=== PATIENT | female | born 2000 | race Two or more races ===

== ENCOUNTER 2024-02-02 13:23 | Emergency (ER) | payer MEDICAID, SELFPAY | END 2024-02-02 13:45 | disposition left against medical advice (07) | PROVIDERS: Emergency Provider Emergency Medicine | DX: Z53.21 Procedure and treatment not carried out due to patient leaving prior to being seen by health care provider (principal) ==

== ENCOUNTER 2024-02-02 14:27 | Emergency (ER) | payer MEDICAID, SELFPAY ==
[2024-02-02 14:27] VITALS: PULSE 86; RESP 18; O2SAT 99
[2024-02-02 14:51] VITALS: BP 102/69; PULSE 80; RESP 18; TEMP 36.9; O2SAT 98; BMI 24.8
--- NOTE | 2024-02-02 14:59 | XR_ITS ---
Examination: Abdomen sonogram, Limited Date and time of exam: February 02, 2024 1527 hours INDICATIONS: Abdominal pain beginning 2 days ago Technique: Real-time long scale transabdominal sonographic images of the upper abdomen obtained. Findings: Multiple gallstones Gallbladder wall 0.3 cm no edema Common bile duct 0.4 cm Pancreatic head 1.9 cm Liver 15 cm fatty infiltration Normal hepatopedal portal venous flow Patent IVC IMPRESSION: Cholelithiasis Negative for cholecystitis Fatty liver
--- NOTE | 2024-02-02 14:59 | XR_ITS ---
Examination: CT abdomen with intravenous contrast CT pelvis with intravenous contrast 2-D coronal reconstructions 2-D sagittal reconstructions Date and time of exam:February 02, 2024 1635 hours INDICATIONS: Upper abdominal pain bilateral flank pain beginning 3 days ago. CTDI: vol (mGy) 8.09 DLP: (mGycm) 457 Technique: Multiple axial sections of the abdomen and pelvis have been obtained. 64 slice high-resolution scanner used. 3 mm axial sections have been obtained, post intravenous injection 60 cc [id number] 2-D sagittal, coronal reconstructions obtained. Low dose protocols were performed. One or more of the following dose reduction techniques were used; automated exposure control, adjustment of the mA and/or KV according to patient size, use of iterative reconstruction technique. Findings: No focal liver or splenic lesions Contracted gallbladder, mild gallbladder wall thickening No pancreatic or adrenal mass No renal or ureteral calculi, no hydronephrosis Aorta normal size Normal appendix No diverticulitis or bowel obstruction No uterine or adnexal mass Urinary bladder intact IMPRESSION: Mild gallbladder wall thickening, recommend repeating the gallbladder study to exclude mild edema involving the gallbladder wall
[2024-02-02] MEDS: SODIUM CHLORIDE 0.9% 1000 ML 1,000 ML 999 ML IV (15:20)
[2024-02-02] MEDS: MORPHINE SULF INJ 10 MG/ML VIAL 5 MG IVP (15:21)
[2024-02-02] MEDS: ONDANSETRON INJ 2 MG/ML INJ 2 ML 4 MG IV (15:22)
[2024-02-02 15:43] LABS: Collection Type, Urine Clean Catch
[2024-02-02 15:49] LABS: Basophils % (Auto) 0 % (0-2.5); Eosinophils # (Auto) 0.1 Thou/mm3 (0.0-0.5); Eosinophils % (Auto) 0 % (0-10); Hematocrit 38.4 % (36.0-46.0); Hemoglobin 13.1 g/dL (12.0-16.0); Immature Granulocytes % (Auto) 0 % (0-0); Immature Granulocytes Auto 0.03 Thou/mm3 (0.00-0.00); Lymphocytes # (Auto) 1.4 Thou/mm3 (1.0-4.8); Lymphocytes % (Auto) 11 % (10-50); Mean Corpuscular HGB Conc 34.1 g/dl (31.0-37.0); Mean Corpuscular Hemoglobin 29.6 pg (25.0-35.0); Mean Corpuscular Volume 87 fL (80-100); Monocytes # (Auto) 0.8 Thou/mm3 (0.0-0.8); Monocytes % (Auto) 6 % (0-12); Neutrophils # (Auto) 10.5 Thou/mm3 (1.8-7.7); Neutrophils % (Auto) 82 % (37-80); Nucleated Red Blood Cell % 0 /100 WBC (0); Platelet Count 208 Thou/mm3 (140-440); RDW Standard Deviation 38.2 fL (36.4-46.3); Red Blood Count 4.42 Miln/mm3 (4.00-5.20); White Blood Count 12.9 Thou/mm3 (3.6-11.0)
[2024-02-02 15:56] LABS: HCG Qualitative,Urine Negative
[2024-02-02 16:00] LABS: Bacteria,Urine Rare; Bilirubin,Urine Negative (Negative); Blood,Urine Negative (Negative); Color,Urine Yellow (Lt Yel-Yel); Glucose, Urine Negative (Negative); Ketones,Urine 1+ (Negative); Leukocyte Esterase,Urine Positive (Negative); Nitrite,Urine Negative (Negative); Protein,Urine 1+ (Neg - Trace); RBC,Urine 5 /hpf (0-3); Specific Gravity,Urine 1.034 (1.001-1.035); Squamous Epithelial Cell,Urine 19 /hpf (0-5); Urobilinogen,Urine 12 mg/dL (0.0-1.0); WBC,Urine 4 /hpf (0-5)
[2024-02-02 16:01] LABS: Clarity,Urine Hazy (Clear/Hazy)
[2024-02-02 16:20] LABS: Alanine Aminotransferase 71 U/L (10-49); Albumin/Globulin Ratio 2.1 (1.2-2.2); Alkaline Phosphatase 83 U/L (46-116); Anion Gap 11 (7-16); Aspartate Amino Transferase 118 U/L (0-34); BUN/Creatinine Ratio 11 Ratio (12-20); Bilirubin,Total 0.6 mg/dL (0.3-1.2); Blood Urea Nitrogen 10 mg/dL (9-23); Calcium 9.6 mg/dL (8.3-10.6); Calcium (Corrected) 9.6 mg/dL (8.5-10.1); Carbon Dioxide 19.9 mMol/L (20.0-31.0); Chloride 110 mMol/L (98-107); Creatinine (Component) 0.9 mg/dL (0.6-1.3); Globulin 2.4 gm/dL (2.3-3.5); Glucose 95 mg/dL (74-106); Lipase 41 U/L (12-53); Osmolality,Calculated 280 (275-295); Sodium 141 mMol/L (136-145); Total Protein 7.4 gm/dL (5.7-8.2); eGFR > 60 See Note
--- NOTE | 2024-02-02 17:21 | EDNOTE_ITS ---
<Statement entered by Laurence Desai MD - 02/08/24 17:54> As co-signing physician, I was present and available for consult prn. I concur with the plan and care as documented by the midlevel provider. ED Abdominal Pain RME/HPI General Chief Complaint: Abdominal Pain Stated complaint: Abdominal pain X 1 hour Time seen by provider: 02/02/24 14:59 Arrival date/time: 02/02/24 14:27 This is a 23-year-old female evaluated in the emergency department today for complaints of intermittent right upper quadrant abdominal pain that radiates into her upper back. Patient does report her pain started yesterday and was evaluated in the emergency department at [facility] and was sent home for musculoskeletal pain. She reports her pain returned this a.m. 10 out of 10 while mild nausea no vomiting. Patient did not attempt any interventions or take any OTC medications prior to ED visit. Denies fever, chills no emesis. Source: patient Related Data Previous Rx's ?Medication ?Instructions ?Recorded hydrocodone 5 mg-acetaminophen 325 1 tab PO Q8H PRN pain #10 tabs 02/02/24 mg tablet ibuprofen 800 mg tablet (IBU) 800 mg PO Q8H #20 tabs 02/02/24 Allergies Allergy/AdvReac Type Severity Reaction Status Date / Time No Known Allergies Allergy Verified 02/02/24 13:28 Review of Systems Review of Systems Systems Reviewed: All systems reviewed, normal except as documented Narrative Review of Systems: Gen: No fever, no chills, no weight loss EYES: No discharge, no visual changes, no pain HEENT: No ear pain, no congestion, no sore throat PULM: No shortness of breath, no cough, no congestion CV: No chest pain, no dyspnea on exertion, no palpitations GI: + nausea, no vomiting, no diarrhea, +right upper pain, no constipation : No frequency, no urgency,? no dysuria Musc/skel: No joint pain, no back pain Skin: No rash? ED Exam Narrative Physical exam: General: 23-year-old female mild distress appears to be in pain, answering questions appropriately HENT: normocephalic, atraumatic, EOMI, PERRLA, moist mucous membranes Chest: chest wall is nontender Cardiac: regular rate and rhythm, normal S1 and S2, no murmurs, rubs, or gallops, capillary refill ?2 seconds Pulmonary: clear to auscultation bilaterally, no wheezing, crackles, or rhonchi Abdominal: active bowel sounds, soft, +rt upper quadrant abd pain Neuro: A&OX3, CN II-XII intact, sensation grossly intact bilaterally in UE and LE. Skin: no rashes, no ecchymosis Ext: no lower extremity edema Course Quality Measures none Orders Category Date Time Status CT Screening NOW Care 02/02/24 15:00 Completed Insert IV NOW Care 02/02/24 14:[address] abdomen pelvis w con Stat Exams 02/02/24 14:59 Completed US gall bladder Stat Exams 02/02/24 14:59 Completed CBC Stat Lab 02/02/24 15:11 Completed Comprehensive Metabolic Panel Stat Lab 02/02/24 15:11 Completed HCG Qualitative,Urine Stat Lab 02/02/24 15:30 Completed HCG,Qualitative Serum Stat Lab 02/02/24 15:11 Completed Lipase Stat Lab 02/02/24 15:11 Completed Urinalysis Stat Lab 02/02/24 15:30 Completed Morphine Inj Med 02/02/24 15:00 Discontinued 5 mg IVP Q1H PRN Ondansetron Inj [Zofran Inj] Med 02/02/24 15:00 Discontinued 4 mg IV X1 ONE Sodium Chloride 0.9% 1000 ml [Ns] 1,000 ml Med 02/02/24 15:17 Discontinued IV 999 mls/hr Vital Signs Vital signs: Vital Signs Temperature 98.5 F 02/02/24 14:51 Pulse Rate 80 02/02/24 14:51 Respiratory Rate 18 02/02/24 14:51 Blood Pressure 102/69 02/02/24 14:51 Pulse Oximetry (%) 98 02/02/24 14:51 Oxygen Delivery Method Room Air 02/02/24 14:51 Abdominal Pain MDM MDM Narrative MDM Narrative:: This is a 23-year-old female evaluated in the emergency department today for complaints of intermittent right upper quadrant abdominal pain that radiates into her upper back. Patient does report her pain started yesterday and was evaluated in the emergency department at [facility] and was sent home for musculoskeletal pain. She reports her pain returned this a.m. 10 out of 10 while mild nausea no vomiting. Patient did not attempt any interventions or take any OTC medications prior to ED visit. Denies fever, chills no emesis. Upon ER arrival patient is having severe pain 10 out of 10 immediately patient was placed in a room IV inserted fluids and morphine and Zofran were given. Patient was tender right upper quadrant most likely cholelithiasis. Appropriate labs, imaging were completed today.. Patient had some mild le ukocytosis can be related to the nausea and stress in the body. Patient has not had any fever. Patient's ultrasound demonstrates cholelithiasis negative for cholecystitis. T. bili is normal however mild elevation of liver enzymes. After medicating the patient and IV fluids patient felt much improved 0 pain. I did advise patient she will need to have a outpatient follow-up with general surgeon meanwhile can be discharged home with pain medication low-fat diet and strict ER precautions to return if worsening symptoms. Patient agrees with plan. Patient data External records reviewed:: [facility] previous records Clinical information provided by:: patient Social determinants that could affect healthcare access:: none Patient has the following chronic illnesses:: no How is presenting disease/condition affected by chronic disease/condition?: no chronic disease Evaluation data The following diagnostics were reviewed and interpreted by me:: lab results Lab and/or radiology exams considered but not ordered:: none Interpretation Summary: Examination: CT abdomen with intravenous contrast CT pelvis with intravenous contrast 2-D coronal reconstructions 2-D sagittal reconstructions Date and time of exam:February 02, 2024 1635 hours INDICATIONS: Upper abdominal pain bilateral flank pain beginning 3 days ago. CTDI: vol (mGy) 8.09 DLP: (mGycm) 457 Technique: Multiple axial sections of the abdomen and pelvis have been obtained. 64 slice high-resolution scanner used. 3 mm axial sections have been obtained, post intravenous injection 60 cc [id number] 2-D sagittal, coronal reconstructions obtained. Low dose protocols were performed. One or more of the following dose reduction techniques were used; automated exposure control, adjustment of the mA and/or KV according to patient size, use of iterative reconstruction technique. Findings: No focal liver or splenic lesions Contracted gallbladder, mild gallbladder wall thickening No pancreatic or adrenal mass No renal or ureteral calculi, no hydronephrosis Aorta normal size Normal appendix No diverticulitis or bowel obstruction No uterine or adnexal mass Urinary bladder intact IMPRESSION: Mild gallbladder wall thickening, recommend repeating the gallbladder study to exclude mild edema involving the gallbladder wall Examination: Abdomen sonogram, Limited Date and time of exam: February 02, 2024 1527 hours INDICATIONS: Abdominal pain beginning 2 days ago Technique: Real-time long scale transabdominal sonographic images of the upper abdomen obtained. Findings: Multiple gallstones Gallbladder wall 0.3 cm no edema Common bile duct 0.4 cm Pancreatic head 1.9 cm Liver 15 cm fatty infiltration Normal hepatopedal portal venous flow Patent IVC IMPRESSION: Cholelithiasis Negative for cholecystitis Fatty liver Medications / Prescriptions Medications or Prescriptions considered but not ordered:: no Medication administrations:: Medication Administration History Discontinued Medications Sodium Chloride (Ns) 1,000 mls @ 999 mls/hr IV .Q1H1M ONE Stop: 02/02/24 16:17 Last Infusion: 02/02/24 17:35 Dose: Infused Documented By: Admin: 02/02/24 15:20 Dose: 999 mls/hr Documented By: JILLIAN Morphine Sulfate (Morphine Sulf Inj 10 Mg/Ml Vial) 5 mg IVP Q1H PRN PRN Reason: ABDOMINAL CRAMPING Last Admin: 02/02/24 15:21 Dose: 5 mg Documented By: GINA Ondansetron HCl (Ondansetron Inj 2 Mg/Ml Inj 2 Ml) 4 mg IV X1 ONE; Protocol Stop: 02/02/24 15:01 Last Admin: 02/02/24 15:22 Dose: 4 mg Documented By: GINA All medications administered and effective Consultations Consultation(s) initiated? (list below): Yes Diagnosis Differential diagnosis abdominal pain: abdominal pain, acute appendicitis, calculus of kidney, diverticulitis, gastroenteritis, pancreatitis and small bowel obstruction Most likely diagnosis given after review of the tests above:: Cholelithiasis Admission Indicated Admission indicated?: not indicated Explain why admission is indicated or not indicated:: none Admission Request Was there a request for admission?: No Disposition Plan Disposition Plan: Discharge Discharge Attestation Discharge Attestation: The patient and all family members were given an opportunity to ask questions and understood the discharge instructions. Discharge instructions specifically effects, indications for sooner follow up or return to the emergency department, and the expected course of current diagnosis. Patient condition: Stable Discharge Plan Plan Patient Disposition: HOME (Self Care) Disposition Comment: stable Patient condition on transfer: Stable Prescriptions/Referrals Prescriptions/Med Rec: New ibuprofen [IBU] 800 mg tablet 800 mg PO Q8H Qty: 20 0RF hydrocodone-acetaminophen 5-325 mg tablet 1 tab PO Q8H MDD 3 PRN (Reason: pain) Qty: 10 0RF Referrals: No Primary/Family,Physician [Primary Care Provider] - In 1 week Problem List Clinical Impression: Cholelithiasis Patient/Caregiver Discharge Instructions Discharge Activity: activity as tolerated Education Materials: ED Gallstones with Biliary Colic Additional Instructions: -It is very important that you establish care nearby clinic you will need a general surgery referral you can do this outpatient. -Please refrain from eating fatty foods fried eggs anything fried it will exacerbate your pain -I did send you ibuprofen a couple [place]'s only for severe pain. -If you have severe pain not improving with your medication please return to the emergency department for second evaluation. Print Language: Welsh Stand Alone Forms: Taylor Award Info., Work/School Release, Patient Portal Info Letter PA/FOREST ECOLOGIST Supervising Physician PA/FOREST ECOLOGIST Supervising Physician: Dr. Queen
[2024-02-02 17:34] LABS: HCG,Qualitative Serum Negative
[2024-02-02 17:37] VITALS: BP 105/62; PULSE 72; RESP 18; TEMP 36.8; O2SAT 97
== END 2024-02-02 18:24 | disposition home or self-care (01) ==
PROVIDERS: Nurse Practitioner Primary Care; Emergency Provider Emergency Medicine; Referring Provider Emergency Medicine
DX: K80.20 Calculus of gallbladder without cholecystitis without obstruction (principal)
CPT/HCPCS: 36415; 74177; 76705; 80053; 81001; 81025; 83690; 84703; 85025; 96361; 96374; 96375; 99285; A4649; J2270; J2405; J7030; Q9967

== ENCOUNTER → 2024-02-06 | Outpatient (BNVA) | payer MEDICAID, SELFPAY | END | disposition home or self-care (01) | PROVIDERS: PCP Nurse Practitioner Primary Care; Referring Provider Nurse Practitioner Primary Care; Visit Provider Nurse Practitioner Primary Care | DX: K80.20 Calculus of gallbladder without cholecystitis without obstruction (principal); Z76.89 Persons encountering health services in other specified circumstances | CPT/HCPCS: 99203 ==

== ENCOUNTER → 2024-02-15 | Outpatient (BNVA) | payer MEDICAID, SELFPAY | END | disposition home or self-care (01) | PROVIDERS: PCP Nurse Practitioner Family; Referring Provider Nurse Practitioner Family; Visit Provider Nurse Practitioner Family | DX: Z00.01 Encounter for general adult medical examination with abnormal findings (principal); K80.20 Calculus of gallbladder without cholecystitis without obstruction; Z13.220 Encounter for screening for lipoid disorders; Z13.1 Encounter for screening for diabetes mellitus; Z11.3 Encounter for screening for infections with a predominantly sexual mode of transmission | CPT/HCPCS: 99215 ==

== ENCOUNTER 2024-04-17 06:05 | Day surgery (SDC) | payer MEDICAID, SELFPAY ==
[2024-04-13 10:54] VITALS: BMI 26.2
[2024-04-13 12:35] LABS: Basophils % (Auto) 1 % (0-2.5); Eosinophils # (Auto) 0.2 Thou/mm3 (0.0-0.5); Eosinophils % (Auto) 3 % (0-10); Hematocrit 39.1 % (36.0-46.0); Hemoglobin 13.2 g/dL (12.0-16.0); Immature Granulocytes % (Auto) 0 % (0-0); Immature Granulocytes Auto 0.01 Thou/mm3 (0.00-0.00); Lymphocytes # (Auto) 1.8 Thou/mm3 (1.0-4.8); Lymphocytes % (Auto) 32 % (10-50); Mean Corpuscular HGB Conc 33.8 g/dl (31.0-37.0); Mean Corpuscular Hemoglobin 30.1 pg (25.0-35.0); Mean Corpuscular Volume 89 fL (80-100); Monocytes # (Auto) 0.4 Thou/mm3 (0.0-0.8); Monocytes % (Auto) 7 % (0-12); Neutrophils # (Auto) 3.3 Thou/mm3 (1.8-7.7); Neutrophils % (Auto) 57 % (37-80); Nucleated Red Blood Cell % 0 /100 WBC (0); Platelet Count 203 Thou/mm3 (140-440); RDW Standard Deviation 39.7 fL (36.4-46.3); Red Blood Count 4.38 Miln/mm3 (4.00-5.20); White Blood Count 5.7 Thou/mm3 (3.6-11.0)
[2024-04-13 12:40] LABS: HCG,Qualitative Serum Negative
[2024-04-13 12:55] LABS: Partial Thromboplastin Time 27.6 Seconds (22.0-36.0)
[2024-04-13 12:56] LABS: Alanine Aminotransferase 21 U/L (10-49); Albumin/Globulin Ratio 2.2 (1.2-2.2); Alkaline Phosphatase 70 U/L (46-116); Anion Gap 9 (7-16); Aspartate Amino Transferase 19 U/L (0-34); BUN/Creatinine Ratio 11 Ratio (12-20); Bilirubin,Total 0.6 mg/dL (0.3-1.2); Blood Urea Nitrogen 9 mg/dL (9-23); Calcium 9.7 mg/dL (8.3-10.6); Calcium (Corrected) 9.7 mg/dL (8.5-10.1); Carbon Dioxide 27.4 mMol/L (20.0-31.0); Chloride 109 mMol/L (98-107); Creatinine (Component) 0.8 mg/dL (0.6-1.3); Estimated Creatinine Clearance 112.4 mL/min (>60); Globulin 2.3 gm/dL (2.3-3.5); Glucose 82 mg/dL (74-106); Osmolality,Calculated 286 (275-295); Potassium 3.8 mMol/L (3.4-5.1); Sodium 145 mMol/L (136-145); Total Protein 7.3 gm/dL (5.7-8.2); eGFR > 60 See Note
[2024-04-17] VITALS (9 sets, daily range): BP systolic 110–137; BP diastolic 60–97; PULSE 70–94; RESP 12–21; TEMP 36.1–36.4; O2SAT 99–100; BMI 26.4
[2024-04-17] MEDS: RINGERS LACTATED 1000 ML 1,000 ML 20 ML IV (06:50)
--- NOTE | 2024-04-17 09:35 | SUR.PHASEI ---
0935 Patient arrived to recovery resting comfortably in [facility], oral airway in place- oxygen therapy initiated 8L via oxy mask, breathing unlabored, vital signs stable, dressing intact to abdomen; dissolvable sutures, gauze, medipore tape, lung sounds clear upon auscultation, bilateral radial pulses present when palpated, report received from Francia EUCEDA and Dr. Adams
--- NOTE | 2024-04-17 09:42 | ESOP_ITS ---
Date of Procedure 04/17/24 Pre Op Diagnosis Symptomatic cholelithiasis with recurrent biliary colic Post Op Diagnosis Same Procedure Laparoscopic cholecystectomy Findings Patient was found to have numerous stones in the gallbladder without any evidence of cholecystitis Procedure Description After endotracheal anesthesia was given the patient was placed in supine position and the abdomen was prepped with chloroprep solution and draped in a sterile manner. After time out was performed I injected a few cc of of half percent Marcaine with epinephrine below the umbilicus and I made an incision for about 3 cm in length. The fascia was cleaned and Veress needle was inserted to create a pneumoperitoneum up to 15 mmHg. Then introduced a 12 mm trocar and a 10 mm camera through the fascia and I inspected the intra-abdominal organs as well as the gallbladder and the liver. Another 5 mm trocar was inserted in the epigastric region under direct vision after injecting some local anesthesia. At this time the patient was kept in reverse Trendelenburg position with the left lateral tilt. The third 5 mm trocar was inserted over the mid axillary line under direct vision and a Juan Antonio and Livan grasper was used to hold the fundus of the gallbladder. The retraction was carried out by the greenhouse assistant moving the fundus of the gallbladder towards the right shoulder of the patient to create enough traction. I placed a another 5 mm trocar in the midaxillary line just lateral to the rectus muscle under direct vision. I used a fenestrated grasper to retract the neck of the gallbladder laterally towards the patient's right hip. The Calot's triangle was exposed and I achieved the critical view of safety as follows: I dissected out the fatty tissue from the hepatocystic triangle and cleared this area. I also dissected inferior and posterior to the gallbladder to identify the cystic duct and the gallbladder wall. Then superiorly I dissected along the cystic plate up to lower one third third of the gallbladder to lift the gallbladder from the liver. At this time I confirmed that only 2 structures entering the gallbladder were cystic artery and the cystic duct. The common duct was seen distally but no dissection was carried out around the duct. I did not see any need for operative cholangiogram in this patient. The cystic duct was clipped doubly and then divided and cystic artery was similarly dealt with. Then the gallbladder was removed from the liver bed using Harmonic fredy to control the small blood vessels as the dissection proceeded. Then the gallbladder was from the liver bed completely and delivered through the umbilical port using an Endopouch. The liver bed was coagulated with cautery to obtain satisfactory hemostasis. The trocars were pulled out from the abdominal cavity and the fascia at the umbilical incision was closed with interrupted 0 Ethibond. Subcutaneous tissues was closed with 3- 0 chromic and injected a few cc of half percent Marcaine with epinephrine and the skin was closed with interrupted 4-0 Monocryl stitches at all the trocar sites. Dressing was applied with 2 x 2 and Tegaderm. Patient tolerated the procedure well and returned to recovery room in stable condition. Pathology / specimen Other (Gallbladder and the stones) IVF Infused 800 Estimated Blood Loss 20 Condition Stable Disposition PACU Surgeon Ely Desir MD Surgical Staff Operation Date: 04/17/24 08:00 Case Staff Anesthesiologist: Vish Adams RN First Assistant: Barb Velez
[2024-04-17] MEDS: fentaNYL CIT INJ 50 mCg/ML AMP 2ML 25 MCG IV ×3 (10:09→10:31)
--- NOTE | 2024-04-17 10:58 | SUR.PHASEII ---
1058 Patient meets discharge criteria from recovery, awake and alert, breathing unlabored, vital signs stable, denies pain-states, I'm just sore , dressing intact; no bleeding noted, patient drinking 7up; denies nausea, patient assisted with dressing into her clothing by this bond underwriter, discharge instructions given to patient and patients boyfriend/mother, with teach-back approach, boyfriend and patient receptive of discharge instructions, boyfriend signed instructions. Patient given all her belongings prior to discharge, transported via wheelchair and left in a private vehicle.
== END 2024-04-17 10:58 | disposition home or self-care (01) ==
PROVIDERS: PCP Nurse Practitioner Primary Care; Referring Provider Surgery; Visit Provider Surgery
PROC: 0FT44ZZ Resection of Gallbladder, Percutaneous Endoscopic Approach (ICD-10-PCS; CPT 47562; principal; 2024-04-17 08:00)
DX: K80.10 Calculus of gallbladder with chronic cholecystitis without obstruction (principal)
CPT/HCPCS: 47562; 36415; 80053; 84703; 85025; 85610; 85730; A4217; A4649; J1100; J2250; J2704; J3010; J3490; J7120; A9270

== ENCOUNTER → 2024-05-31 | Outpatient (BNVA) | payer MEDICAID, SELFPAY | END | disposition home or self-care (01) | PROVIDERS: PCP Nurse Practitioner Primary Care; Referring Provider Nurse Practitioner Primary Care; Visit Provider Nurse Practitioner Primary Care | DX: J45.20 Mild intermittent asthma, uncomplicated (principal); J30.89 Other allergic rhinitis; Z48.89 Encounter for other specified surgical aftercare | CPT/HCPCS: 99213 ==

== ENCOUNTER → 2024-09-17 | Outpatient (BNVA) | payer MEDICAID, SELFPAY | END | disposition home or self-care (01) | PROVIDERS: PCP Nurse Practitioner Family; Referring Provider Nurse Practitioner Family; Visit Provider Nurse Practitioner Family | DX: Z32.01 Encounter for pregnancy test, result positive (principal) | CPT/HCPCS: 99214 ==

== ENCOUNTER → 2024-09-19 | Outpatient (BNVA) | payer MEDICAID, SELFPAY | END | disposition home or self-care (01) | PROVIDERS: PCP Nurse Practitioner Primary Care; Referring Provider Nurse Practitioner Primary Care; Visit Provider Nurse Practitioner Primary Care | DX: Z32.01 Encounter for pregnancy test, result positive (principal) | CPT/HCPCS: 99212; G0463 ==

== ENCOUNTER 2024-10-15 08:21 | Outpatient (AMB) | payer MEDICAID, SELFPAY ==
[2024-10-15 08:45] VITALS: BP 112/68; PULSE 81; RESP 16; TEMP 36.6; O2SAT 97; BMI 28.5
--- NOTE | 2024-10-15 08:45 | OBCLNT_ITS ---
Vital Signs 10/15/24 08:45 Height 1.68 m Height Method Stated Weight 80.399 kg Weight Measurement Method Standing Scale BMI 28.5 BP 112/68 Blood Pressure Source Automatic Cuff Blood Pressure Location Left Upper Arm Position Sitting Respiration 16 Pulse 81 Pulse Source Monitor Temp 97.8 F Temp Source Oral Pulse Oximetry (%) 97 Oxygen Delivery Method Room Air Allergies/Home Meds Allergies & Medications Allergies No Known Allergies Allergy (Verified 10/15/24 08:46) Medication Reconciliation vits 168-iron 27 mg-folic acid 800 mcg-omega3 235 mg capsule (One-A-Day -1) 1 cap PO QDAY 30 days #30 caps 09/17/24 [Rx Confirmed 10/15/24] Intake Visit Data Collection New Patient or Established: Established Patient (seen at [facility] within 3 years) Reason for Visit:: INITIAL CARE Seen by Clinical Staff ONLY (RN/MA): No Chicle Grinder Feeder Required: No Do You Feel Safe at Home: Yes Authorities Contacted: N/A PCP or OBGYN visit in last 3 months: Yes Hx Now: Yes Are you currently on any form of Control: No Pain Present Currently: No Pain Scale Used: Killian-Edmonds/Numerical Pain scale:: 0 Smoking Status Smoking Status: Never smoker Questionnaires Covid-19 Vaccine Questionnaire Has patient been vacinated for Covid-19 Have you been vacinated for Covid-19: Yes PHQ-9 PHQ-2 Over the last 2 weeks, how often have you been bothered by any of the following problems? 1. Little interest or pleasure in doing things: not at all 2. Feeling down, depressed, or hopeless: not at all Total score: 0 PHQ-9 3. Trouble falling or staying asleep, or sleeping too much: Not at all 4. Feeling tired or having little energy: Not at all 5. Poor appetite or overeating: Not at all 6. Feeling bad about yourself - or that you are a failure or have let yourself or your family down: Not at all 7. Trouble concentrating on things, such as reading the newspaper or watching television: Not at all 8. Moving or speaking so slowly that other people could have noticed? - Or the opposite - being so fidgety or restless that you have been moving around a lot more than usual: not at all 9. Thoughts that you would be better off or of hurting yourself in some way: Not at all Total score: 0 Source: Developed by Drs. Jewel Méndez, Tiffany Owen, Varun Manzano and colleagues, with an educational ana laura from [employer]. Depression screen completed yes Social History Living Situation History Marital Status: Single Lives With: Family Housing: Apartment Housing Other:: Has a 4 year old daughter. 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 Her baby weighed 7 lbs 14 oz. She stated she had an epidural and did not push long. She had one SAB about a year ago that did not requite a D and C. She states she went to the ER in [place] twice this pregnanc for VB. No Records. Diagnosed with a possible UTI and a possible subchorioonic bleed. LMP 8 weeks ago on 07/31/24. EDC 05/21/2025 by today's ultrasound. OB Ultrasound Indication Indication: Size, dates, viability OB Ultrasound Ultrasound technique: transabdominal Gestational sac assessment: Presence, location, size, shape: Live IUP CRL 2.23 cm corresponding to 9 weeks EGA and an EDC of 05/21/25. Cardiac activity noted at 140 BPM CREDIT RISK MANAGER: Past Medical History Additional Operations/Hospitalizations (year & reason): Laparoscopic cholescystectomy 04/17/2024 Other Relevant History: Asthma mild but has 2 inhalers Hx chlamydia 2020 Last pap WNL per pt 2023 OB Initial Visit OB Flowsheet OB Flowsheet Initial Weight: Not Recorded Date -?-?-?-?-?-?-?-?-?-?-?-?- EGA Weight BP Alb Glu CTX Pres Fundal ht FHR Mov Dilation Station Effacement Hx Notes Visit Note 10/15/24 -?-?-?-?-?-?-?-?-?-?-?-?- 8w 6d 80.399 kg 112/68 140 New OB. Labs ordered. EDC 05/21/24 by US today Menstrual History Menstrual reliability: definite Flow: normal Menstrual regularity: regular Monthly: Yes Age at menarche: 12 On control pills at conception: No Associated symptoms (LMP): Reports nausea, fatigue and breast tenderness OB History : 3 Para: 1 Hx Total # of Abortions (Spontaneous & Elective): 1 # of Living Children: 1 Delivery History 1st : Child's name: CONCHITA date: 10/07/20 sex: female Gestational age at delivery (weeks): 42 Delivery type: vaginal Delivery complications: NONE History of depression before or after : No Infection History & Risk Evaluation History of STDs: none Genetic Screening & History Genetic Screening/Teratology Counseling - Includes patient, baby's father, or anyone in either family with: 1. Patient's age 35 years or older as of estimated date of delivery: No 2. Thalassemia (Tajik, Mexican, Mediterranean, or Background); MCV less than 80: No 3. Neural Tube Defect (Meningomyelocele, Spina Bifida, or Anencephaly): No 4. Congenital Heart Defect: No 5. Down Syndrome: No 6. Phi-Sachs (Ashkenazi Congregational, Cajun, Finnish Marshallese): No 7. Rubi Disease (Ashkenazi Congregational): No 8. Familial Dysautonomia (Ashkenazi Congregational): No 9. Sickle Cell Disease or Trait (): No 10. Hemophilia or other blood disorders: No 11. Muscular Dystrophy: No 12. Cystic Fibrosis: No 13. Ashland's Chorea: No 14. Mental Retardation/Autism: No 15. Other inherited genetic or chromosomal disorder: No 16. Maternal Metabolic Disorder (EG,TYPE 1 Diabetes, PKU): No 17. Patient or baby's father had a child with defects not listed above: No 18. Recurrent loss or a stillbirth: No 19. Medications (including supplements, vitamins, herbs or otc drugs)/illicit/recreational drugs/alcohol since last menstrual period: No 20. Any other: No Infection History 1. Live with someone with TB or exposed to TB: No 2. Rash or viral illness since last menstrual period: No 3. Hepatitis B,C: No Other (see comments) Source: [employer] Review of Systems Constitutional Constitutional: Reports fatigue Gastrointestinal Gastrointestinal: Reports nausea Endocrine Endocrine: Reports fatigue Exam General Limitations: no limitations General Appearance: alert, in no apparent distress, comfortable, cooperative, healthy appearing and well groomed Chest Chest inspection: Present normal inspection and symmetric chest wall rise Resp Respiratory exam: Present normal lung sounds bilaterally Card Cardiovascular exam: Present regular rate, normal rhythm and normal heart sounds Abdominal Abdominal exam: Present soft and normal bowel sounds Psych Psychiatric exam: Present normal affect and normal mood Skin Skin exam: Present warm, dry, intact and normal color Office Procedures OB Clinic LOC & Office Proc's Nursing/Assessment Patient Status: Established Patient OB Clinic Nursing Assessment: Medication Reconciliation, Update PMH in EMR and Vital Signs OB Clinic Coordination of Care: Complex Care and Chronic Disease 1-5, Consent,records obtained, informed consent, Education Simp Pt/Fam, Lab and Imaging orders, Results/Orders obtained and Staff clarify orders Special Needs: Heart tones Established Patient Charge Established Patient Point Assignment: 135 Established Patient Point Charge: EP Level 4 (120-155) Assessment & Plan Diagnosis / Problem List (1) : Status: Acute Qualifiers: Weeks of gestation: 8 weeks Qualified Code(s): Z3A.08 - 8 weeks gestation of
== END 2024-10-15 09:23 | disposition home or self-care (01) ==
LOC: HODSOBC 08:21
PROVIDERS: PCP Nurse Practitioner Primary Care; Referring Provider Nurse Practitioner Primary Care; Supervising Provider Obstetrics & Gynecology; Visit Provider Obstetrics & Gynecology
DX: Z34.81 Encounter for supervision of other normal pregnancy, first trimester (principal); Z3A.08 8 weeks gestation of pregnancy
CPT/HCPCS: 99214; G0463

== ENCOUNTER 2024-11-12 08:31 | Outpatient (AMB) | payer MEDICAID, SELFPAY ==
[2024-11-12 08:47] VITALS: BP 107/72; PULSE 74; RESP 17; TEMP 36.6; O2SAT 98; BMI 28.7
--- NOTE | 2024-11-12 08:47 | OBCLNT_ITS ---
Vital Signs 11/12/24 08:47 Height 1.68 m Height Method Stated Weight 80.966 kg Weight Measurement Method Standing Scale BMI 28.7 BP 107/72 Blood Pressure Source Automatic Cuff Blood Pressure Location Right Upper Arm Position Sitting Respiration 17 Pulse 74 Pulse Source Monitor Temp 97.8 F Temp Source Temporal Artery Scan Pulse Oximetry (%) 98 Oxygen Delivery Method Room Air Allergies/Home Meds Allergies & Medications Allergies No Known Allergies Allergy (Verified 11/12/24 08:47) Medication Reconciliation clotrimazole 2 % vaginal cream (Gyne-Lotrimin) 1 appful vaginal QHS 7 days #21 grams 11/12/24 [Rx] Intake Visit Data Collection New Patient or Established: Established Patient (seen at [facility] within 3 years) Reason for Visit:: OBC Seen by Clinical Staff ONLY (RN/MA): No Recruiting Operations Consultant Required: No Do You Feel Safe at Home: Yes Authorities Contacted: N/A PCP or OBGYN visit in last 3 months: Yes Date of Last PCP or OBGYN visit: 10/15/24 Hx Now: Yes Are you currently on any form of Control: No Pain Present Currently: No Pain Scale Used: Killian-Edmonds/Numerical Pain scale:: 0 Smoking Status Smoking Status: Never smoker Questionnaires Covid-19 Vaccine Questionnaire Has patient been vacinated for Covid-19 Have you been vacinated for Covid-19: No PHQ-9 PHQ-2 Over the last 2 weeks, how often have you been bothered by any of the following problems? 1. Little interest or pleasure in doing things: not at all 2. Feeling down, depressed, or hopeless: not at all Total score: 0 PHQ-9 3. Trouble falling or staying asleep, or sleeping too much: Not at all 4. Feeling tired or having little energy: Not at all 5. Poor appetite or overeating: Not at all 6. Feeling bad about yourself - or that you are a failure or have let yourself or your family down: Not at all 7. Trouble concentrating on things, such as reading the newspaper or watching television: Not at all 8. Moving or speaking so slowly that other people could have noticed? - Or the opposite - being so fidgety or restless that you have been moving around a lot more than usual: not at all 9. Thoughts that you would be better off or of hurting yourself in some way: Not at all Total score: 0 If you checked off any problems, how difficult have these problems made it for you to do your work, take care of things at home, or get along with other people?: not difficult at all Source: Developed by Drs. Jewel Méndez, Tiffany Owen, Varun Manzano and colleagues, with an educational ana laura from [employer]. Depression screen completed yes Social History Living Situation History Marital Status: Unknown Lives With: Family Housing: Apartment Housing Other:: Has a 4 year old daughter. 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 Labs ordered. EDC 05/21/24 by US today 11/12/24 -?-?-?-?-?-?-?-?-?-?-?-?- 12w 6d 80.966 kg 107/72 absent unknown 13 150 absent Reviewed labs NIPT. Patient denies leaking, bleeding, contractions. No OB complaints Reviewed labs NIPT. Patient denies leaking, bleeding, contractions. No OB complaints. Discussed labs. Discussed SAB precautions. Schedule MFM appointment with Dr. Swenson. Discussed labs. Discussed S AB precautions. Schedule MFM appointment with Dr. Swenson. NUSWAB today Discussed labs. Discussed S AB precautions. Schedule MFM appointment with Dr. Swenson. NUSWAB today.gynelotrimin x 7 JOE Calculator Estimated Delivery Date Method Current WG Current Estimate 05/21/25 Ultrasound #1 12w 6d Other Estimates 05/07/25 LMP (Uncertain) 14w 6d Notes Visit Date: 11/12/24 Last Updated by: Lary Biggs CNM OB panel: O+,abs-, rpr;;nr, rub imm, HBSAG-, HC-,HBSAG-, GC/CT-, UT-, <A!: 5.3, NIPT-, CF-,SMA- Office Procedures OBC Clinic LOC & Office Proc's Nursing/Assessment Patient Status: Established Patient OB Clinic Nursing Assessment: Medication Reconciliation, Update PMH in EMR and Vital Signs OB Clinic Coordination of Care: Complex Care and Chronic Disease 1-5, Education Complex Pt/Fam, Consent,records obtained, informed consent and Staff clarify orders Special Needs: Heart tones Established Patient Charge Established Patient Point Assignment: 120 Established Patient Point Charge: EP Level 4 (120-155) Assessment & Plan Diagnosis / Problem List (1) Encounter for supervision of high risk in second trimester, antepartum: Status: Acute (2) Acute candidiasis of vulva and vagina: Status: Acute Plan NuSwab plus today. PROTECTION ENGINEER Lotrimin x 7. Comfort measures for vaginitis. Discussed comfort measures for seasonal allergies. Claritin or Zyrtec are okay. SAB precautions. Schedule with MFM for ultrasound. And reviewed labs. Additional Plan Follow Up: 4 Weeks (obc)
== END 2024-11-12 10:08 | disposition home or self-care (01) ==
LOC: HODSOBC 08:31
PROVIDERS: PCP Nurse Practitioner Primary Care; Referring Provider Nurse Practitioner Primary Care; Supervising Provider Advanced Practice Midwife; Visit Provider Advanced Practice Midwife
DX: O09.891 Supervision of other high risk pregnancies, first trimester (principal); O98.811 Other maternal infectious and parasitic diseases complicating pregnancy, first trimester; B37.31 Acute candidiasis of vulva and vagina; O99.511 Diseases of the respiratory system complicating pregnancy, first trimester; J30.2 Other seasonal allergic rhinitis; Z3A.12 12 weeks gestation of pregnancy
CPT/HCPCS: 99214; G0463

== ENCOUNTER 2024-12-10 11:38 | Outpatient (AMB) | payer MEDICAID, SELFPAY ==
[2024-12-10 11:44] VITALS: BP 119/73; PULSE 71; RESP 18; TEMP 36.6; O2SAT 98; BMI 28.6
--- NOTE | 2024-12-10 11:44 | OBCLNT_ITS ---
Vital Signs 12/10/24 11:44 Height 1.68 m Height Method Stated Weight 80.91 kg Weight Measurement Method Standing Scale BMI 28.6 BP 119/73 Blood Pressure Source Automatic Cuff Blood Pressure Location Right Upper Arm Position Sitting Respiration 18 Pulse 71 Pulse Source Monitor Temp 97.8 F Temp Source Temporal Artery Scan Pulse Oximetry (%) 98 Oxygen Delivery Method Room Air Allergies/Home Meds Allergies & Medications Allergies No Known Allergies Allergy (Verified 12/10/24 11:45) Medication Reconciliation clotrimazole 2 % vaginal cream (Gyne-Lotrimin) 1 appful vaginal QHS 7 days #21 grams 11/12/24 [Rx Confirmed 12/10/24] metronidazole 500 mg tablet 500 mg PO BID 7 days #14 tabs 12/10/24 [Rx] Intake Visit Data Collection New Patient or Established: Established Patient (seen at [facility] within 3 years) Reason for Visit:: OBC Seen by Clinical Staff ONLY (RN/MA): No Green Building Materials Designer Required: No Do You Feel Safe at Home: Yes Authorities Contacted: N/A PCP or OBGYN visit in last 3 months: Yes Date of Last PCP or OBGYN visit: 11/12/24 Hx Now: Yes Are you currently on any form of Control: No Pain Present Currently: Yes Pain Location: Groin Pain Scale Used: Killian-Edmonds/Numerical Pain scale:: 9 Smoking Status Smoking Status: Never smoker Immunizations Flu Vaccine in the Last 12 Months: No Flu Vaccine Exclusion Criteria: No Exclusion Criteria Questionnaires Covid-19 Vaccine Questionnaire Has patient been vacinated for Covid-19 Have you been vacinated for Covid-19: No PHQ-9 PHQ-2 Over the last 2 weeks, how often have you been bothered by any of the following problems? 1. Little interest or pleasure in doing things: not at all 2. Feeling down, depressed, or hopeless: not at all Total score: 0 PHQ-9 3. Trouble falling or staying asleep, or sleeping too much: Not at all 4. Feeling tired or having little energy: Not at all 5. Poor appetite or overeating: Not at all 6. Feeling bad about yourself - or that you are a failure or have let yourself or your family down: Not at all 7. Trouble concentrating on things, such as reading the newspaper or watching television: Not at all 8. Moving or speaking so slowly that other people could have noticed? - Or the opposite - being so fidgety or restless that you have been moving around a lot more than usual: not at all 9. Thoughts that you would be better off or of hurting yourself in some way: Not at all Total score: 0 If you checked off any problems, how difficult have these problems made it for you to do your work, take care of things at home, or get along with other people?: not difficult at all Source: Developed by Drs. Jewel Méndez, Tiffany Owen, Varun Manzano and colleagues, with an educational ana laura from [employer]. Depression screen completed yes Social History Living Situation History Marital Status: Single Lives With: Family Housing: Apartment Housing Other:: Has a 4 year old daughter. 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 Labs ordered. EDC 05/21/24 by US today 11/12/24 -?-?-?-?-?-?-?-?-?-?-?-?- 12w 6d 80.966 kg 107/72 absent unknown 13 150 absent Reviewed labs NIPT. Patient denies leaking, bleeding, contractions. No OB complaints Reviewed labs NIPT. Patient denies leaking, bleeding, contractions. No OB complaints. Discussed labs. Discussed SAB precautions. Schedule MFM appointment with Dr. Swenson. Discussed labs. Discussed S AB precautions. Schedule MFM appointment with Dr. Swenson. NUSWAB today Discussed labs. Discussed S AB precautions. Schedule MFM appointment with Dr. Swenson. EMMANUEL today.gynelotrimin x 7 12/10/24 -?-?-?-?-?-?-?-?-?-?-?-?- 16w 6d 80.91 kg 119/73 absent unknown 16 156 active complaints of pain in R[place] thigh, sharp, area feels numb x 24 hr. today , pain feels like it is moving to left leg. both legs feel heavy. this is causing patient to limp. patient reports, she has had this pain prior, when she was a little girl. It went away by itself. She also reports that last week, her allergies caused her to be seen in urgent care for s/s of asthma attack and needed a breathing treatment Patient to make an appointment with her primary care physician regarding her leg pain and her asthma. Encouraged patient to use her inhaler on a regular basis and to also use her rescue inhaler if she needed it. Discussed SAB and labor precautions. We did an AFP today. In appointment is pending with [facility]. Return in 4 weeks for recheck Patient to make an appointm ent with her primary care physician regarding her leg pain and her asthma. Encouraged patient to use her inhaler on a regular basis and to also use her rescue inhaler if she needed it. Discussed SAB and labor precautions. We did an AFP today. In appointment is pending with [facility]. Return in 4 weeks for recheck, AFP. Flagyl 500 po bid x7 JOE Calculator Estimated Delivery Date Method Current WG Current Estimate 05/21/25 Ultrasound #1 16w 6d Other Estimates 05/07/25 LMP (Uncertain) 18w 6d Notes Visit Date: 11/12/24 Last Updated by: Lary Biggs CNM OB panel: O+,abs-, rpr;;nr, rub imm, HBSAG-, HC-,HBSAG-, GC/CT-, UT-, <A!: 5.3, NIPT-, CF-,SMA- Office Procedures OBC Clinic LOC & Office Proc's Nursing/Assessment Patient Status: Established Patient OB Clinic Nursing Assessment: Medication Reconciliation, Update PMH in EMR and Vital Signs OB Clinic Coordination of Care: Complex Care and Chronic Disease 1-5, Education Complex Pt/Fam, Consent,records obtained, informed consent, Results/Orders obtained and Staff clarify orders Special Needs: Heart tones Established Patient Charge Established Patient Point Assignment: 125 Established Patient Point Charge: EP Level 4 (120-155) Assessment & Plan Diagnosis / Problem List (1) Encounter for supervision of high risk in second trimester, antepartum: Status: Acute (2) Acute candidiasis of vulva and vagina: Status: Acute Plan aFP today. I advised patient to make an appointment with her primary care for asthma management and for her leg pain. We also discussed comfort measures for leg pain increasing rest staying off her leg I discussed stretching and [id number] Tylenol and heat. MFM appointment is pending. Return in 4 weeks OB check. Flagyl 500 p.o. twice daily x 7 days Additional Plan Follow Up: 4 Weeks (obc)
== END 2024-12-10 13:11 | disposition home or self-care (01) ==
LOC: HODSOBC 11:38
PROVIDERS: PCP Nurse Practitioner Primary Care; Referring Provider Nurse Practitioner Primary Care; Supervising Provider Advanced Practice Midwife; Visit Provider Advanced Practice Midwife
DX: O09.892 Supervision of other high risk pregnancies, second trimester (principal); O98.812 Other maternal infectious and parasitic diseases complicating pregnancy, second trimester; B37.31 Acute candidiasis of vulva and vagina; Z3A.16 16 weeks gestation of pregnancy
CPT/HCPCS: 99214; G0463

== ENCOUNTER → 2024-12-24 | Outpatient (BNVA) | payer MEDICAID, SELFPAY | END | disposition home or self-care (01) | PROVIDERS: PCP Nurse Practitioner Family; Referring Provider Nurse Practitioner Family; Visit Provider Nurse Practitioner Family | DX: M54.16 Radiculopathy, lumbar region (principal); M79.605 Pain in left leg; M79.604 Pain in right leg | CPT/HCPCS: 99213 ==

== ENCOUNTER 2025-01-07 11:09 | Outpatient (AMB) | payer MEDICAID, SELFPAY ==
--- NOTE | 2025-01-07 11:17 | OBCLNT_ITS ---
Vital Signs 01/07/25 11:19 Height 1.68 m Height Method Stated Weight 83.461 kg Weight Measurement Method Standing Scale BMI 29.5 BP 93/62 Blood Pressure Source Automatic Cuff Blood Pressure Location Right Upper Arm Position Sitting Respiration 18 Pulse 101 H Pulse Source Monitor Temp 97.8 F Temp Source Temporal Artery Scan Pulse Oximetry (%) 97 Oxygen Delivery Method Room Air Allergies/Home Meds Allergies & Medications Allergies No Known Allergies Allergy (Verified 12/24/24 14:19) Immunizations Immunizations Flu Vaccine in the Last 12 Months: No Flu Vaccine Exclusion Criteria: No Exclusion Criteria Care OB Visit Log OB Flowsheet Initial Weight: Not Recorded Date -?-?-?-?-?-?-?-?-?-?-?-?- EGA Weight BP Alb Glu CTX Pres Fundal ht FHR Mov Dilation Station Effacement Hx Notes Visit Note 10/15/24 -?-?-?-?-?-?-?-?-?-?-?-?- 8w 6d 80.399 kg 112/68 140 New OB. Labs ordered. EDC 05/21/24 by US to day 11/12/24 -?-?-?-?-?-?-?-?-?-?-?-?- 12w 6d 80.966 kg 107/72 absent unknown 13 150 absent Reviewed labs NIPT. Patient denies leaking, bleeding, contractions. No OB complaints Reviewed labs NIPT. Patient denies leaking, bleeding, contractions. No OB complaints. Discussed labs. Discussed SAB precautions. Schedule MFM appointme nt with Dr. Swenson. Discussed labs. Discussed S AB precautions. [facility]. Discussed S AB precautions. Schedule MFM [facility] Dr[facility] Swenson[facility].gynelotrimin x 7 12/10/24 -?-?-?-?-?-?-?-?-?-?-?-?- 16w 6d 80.91 kg 119/73 absent unknown 16 156 active complaints of pain in [place] thigh, sharp, area feels numb x 24 hr. today , pain feels like it is moving to left leg. both legs feel heavy. this is causing patient to limp. patient reports, she has had this pain prior, when she was a little girl. It went away by itself. She also reports that last week, her allergies caused her to be seen in urgent care for s/s of asthma attack and needed a breathing treatment Patient to make an appointment with her primary care physician regarding her leg pain and her asthma. Encouraged patient to use her inhaler on a regular basis and to also use her rescue inhaler if she needed it. Discussed SAB and labor precautions. We did an AFP today. In appointment is pending with [facility]. Return in 4 weeks for recheck Patient to make an appointm ent with her primary care physician regarding her leg pain and her asthma. Encouraged patient to use her inhaler on a regular basis and to also use her rescue inhaler if she needed it. Discussed SAB and labor precautions. We did an AFP today. In appointment is pending with [facility]. Return in 4 weeks for recheck, AFP. Flagyl 500 po bid x7 01/07/25 -?-?-?-?-?-?-?-?-?-?-?-?- 20w 6d 83.461 kg 93/62 absent unknown 20 156 active Exposed to foot and mouth disease. Rash is almost gone. Patient was seen in [place] urgent care and a swab to check for everything was done. I asked the patient to bring that result. Reports light movement. Denies leaking, bleeding, cramps Patient has [facility] appointment February 05. Discussed labor precautions. Mask wearing if she is around individuals with cough cold and upper respiratory symptoms. Return in 4 weeks OB check JOE Calculator Estimated Delivery Date Method Current WG Current Estimate 05/21/25 Ultrasound #1 20w 6d Other Estimates 05/07/25 LMP (Uncertain) 22w 6d Notes Visit Date: 01/07/25 Last Updated by: Lary Biggs CNM AFP- Visit Date: 11/12/24 Last Updated by: Lary Biggs CNM OB panel: O+,abs-, rpr;;nr, rub imm, HBSAG-, HC-,HBSAG-, GC/CT-, UT-, <A!: 5.3, NIPT-, CF-,SMA- Office Procedures OBC Clinic LOC & Office Proc's Nursing/Assessment Patient Status: Established Patient OB Clinic Nursing Assessment: Medication Reconciliation, Update PMH in EMR and Vital Signs OB Clinic Coordination of Care: Complex Care and Chronic Disease 1-5, Education Complex Pt/Fam, Consent,records obtained, informed consent, Lab and Imaging orders, Results/Orders obtained and Staff clarify orders Special Needs: Heart tones Established Patient Charge Established Patient Point Assignment: 140 Established Patient Point Charge: EP Level 4 (120-155) Assessment & Plan Diagnosis / Problem List (1) Encounter for supervision of high risk in second trimester, antepartum: Status: Acute Plan Wear a mask around individuals with upper respiratory infections. Discussed labor precautions. Increase fluids. Follow-up with MFM at her scheduled appointment February 05. Patient will obtain a record of her ER visit for foot hand and mouth. Return in 4 weeks OB check Additional Plan Follow Up: 4 Weeks (obc)
[2025-01-07 11:19] VITALS: BP 93/62; PULSE 101; RESP 18; TEMP 36.6; O2SAT 97; BMI 29.5
== END 2025-01-07 11:27 | disposition home or self-care (01) ==
PROVIDERS: Supervising Provider Advanced Practice Midwife; Visit Provider Advanced Practice Midwife
DX: O09.892 Supervision of other high risk pregnancies, second trimester (principal); O98.511 Other viral diseases complicating pregnancy, first trimester; B08.8 Other specified viral infections characterized by skin and mucous membrane lesions; Z3A.20 20 weeks gestation of pregnancy
CPT/HCPCS: 99214; G0463